=== PATIENT | male | born 1990 | race Caucasian/White ===

== ENCOUNTER 2018-03-06 11:27 | Emergency (ER) | payer SELFPAY ==
[~2018-03-06] VITALS: Ht 170.2 cm; Wt 65.9 kg
[2018-03-06 12:10] VITALS: Ht 170.2 cm; Wt 65.9 kg
[2018-03-06 13:44] VITALS: BP 146/87
== END 2018-03-06 13:44 | disposition home or self-care (01) ==
LOC: D.ER 11:27
DX: S92.511A Displaced fracture of proximal phalanx of right lesser toe(s), initial encounter for closed fracture (principal); W18.31XA Fall on same level due to stepping on an object, initial encounter; Y93.89 Activity, other specified; Y92.89 Other specified places as the place of occurrence of the external cause; F17.200 Nicotine dependence, unspecified, uncomplicated